=== PATIENT | female | born 1955 | race Asian ===

== ENCOUNTER 2018-10-26 09:15 | Emergency (ER) | payer BC ==
[~2018-10-26] VITALS: Ht 160 cm; Wt 64.9 kg
[2018-10-26 09:32] VITALS: Ht 160 cm; Wt 64.9 kg
[2018-10-26 10:18] LABS: BASOPHIL % 0.5 % (0-2); PLATELET COUNT 198 x10^3mcL (130-400); RED CELL DISTRIBUTION WIDTH 14.2 % (11.5-14.5)
[2018-10-26 10:21] LABS: CALCIUM 8.5 mg/dL (8.5-10.1); CARBON DIOXIDE 28.5 mmol/L (21-32); CHLORIDE SERUM 106 mmol/L (98-107); CREATININE SERUM 0.7 mg/dL (0.6-1.0); GFR1 > 60 mL/min; GLUCOSE SERUM 94 mg/dL (74-106); POTASSIUM SERUM 3.5 mmol/L (3.5-5.1); SODIUM SERUM 143 mmol/L (136-145)
[2018-10-26 10:26] LABS: ALBUMIN 3.7 g/dL (3.4-5.0); ALKALINE PHOSPHATASE 62 U/L (46-116); ALT/SGPT 15 U/L (14-59); AST/SGOT 21 U/L (15-37); BILIRUBIN TOTAL 0.65 mg/dL (0.20-1.00); LIPASE 80 IU/L (73-393); TOTAL PROTEIN, SERUM 7.9 g/dL (6.4-8.2)
[2018-10-26 11:16] VITALS: BP 122/81
== END 2018-10-26 11:16 | disposition home or self-care (01) ==
LOC: ED 09:15
PROVIDERS: Emergency Medicine
DX: K59.00 Constipation, unspecified (principal); N83.202 Unspecified ovarian cyst, left side; J45.909 Unspecified asthma, uncomplicated; E11.9 Type 2 diabetes mellitus without complications
CPT/HCPCS: 36415